=== PATIENT | male | born 1995 | race African-American/Black ===

== ENCOUNTER 2017-05-04 21:57 | Emergency (ER) | payer OTHER ==
[~2017-05-04] VITALS: Ht 177.8 cm; Wt 62.3 kg
[~2017-05-04 21:57] MED LIST: Z.0.NO CURRENT MEDS
[2017-05-04 22:02] VITALS: BP 135/81; PULSE 60; RESP 16; TEMP 98.8; O2SAT 97
[2017-05-04] MEDS ORDERED: IBUP1TAB7 PO (23:54)
[2017-05-04] MEDS ORDERED: BACL10TA PO (23:54)
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
[2017-05-05] MEDS ORDERED: IBUPROFEN 800 MG TAB PO ONE
[2017-05-05] MEDS ORDERED: BACLOFEN 10 MG TAB PO ONE
== END 2017-05-05 01:15 | disposition home or self-care (01) ==
LOC: NEPD 21:57
DX: S16.1XXA Strain of muscle, fascia and tendon at neck level, initial encounter (principal); V49.40XA Driver injured in collision with unspecified motor vehicles in traffic accident, initial encounter
CPT/HCPCS: 99283